=== PATIENT | male | born 1990 | race Caucasian/White ===

== ENCOUNTER 2020-08-21 16:17 | Emergency (ER) | payer OTHER ==
[~2020-08-21] VITALS: Ht 180.3 cm; Wt 74.8 kg
[~2020-08-21 16:17] MED LIST: NORCO 5-325 TA1 EACH PO; VENTOLIN HFA 1818 GM INH
[2020-08-21 16:28] VITALS: BP 117/76
[2020-08-21] MEDS ORDERED: FLEXERIL PO (16:31)
[2020-08-21] MEDS ORDERED: NORCO5 PO (17:21)
== END 2020-08-21 17:35 | disposition home or self-care (01) ==
LOC: ER 16:17
DX: S62.616A Displaced fracture of proximal phalanx of right little finger, initial encounter for closed fracture (principal); S63.256A Unspecified dislocation of right little finger, initial encounter; J45.909 Unspecified asthma, uncomplicated; Z79.899 Other long term (current) drug therapy; V29.9XXA Motorcycle rider (driver) (passenger) injured in unspecified traffic accident, initial encounter; Y93.89 Activity, other specified; Y92.89 Other specified places as the place of occurrence of the external cause; Y99.8 Other external cause status